=== PATIENT | male | born 1985 | race Caucasian/White ===

== ENCOUNTER 2019-02-04 09:35 | Emergency (ER) | payer OTHER ==
[2019-02-04 09:56] VITALS: BP 134/84; PULSE 90; TEMP 98.3; BMI 38.6
[2019-02-04] MEDS ORDERED: SODIUM PHOSPHATE/NA BIPHOS 133 ML ENEMA PR ONE (10:49)
--- NOTE | 2019-02-04 10:50 | PDOC ---
History of Present Illness - General Chief Complaint: Constipation Stated Complaint: Constipation Time Seen by Provider: 02/04/19 10:25 History Source: Patient Exam Limitations: No Limitations - History of Present Illness Initial Comments: 33 yo M PMH gout, fatty liver disease, p/w constipation. Says he was biking a ton the last two days with a hoodie on, trying to lose a bunch of weight. This morning, he attempted to go and was straining for about 40 minutes without success. Was concerned that he had "ripped myself all up inside". He had another unsuccessful attempt a few hours later, which prompted him to come in. Did not try anything at home. Normally takes colchicine at home but has not for past week because it was causing him diarrhea. Denies CP, SOB, FLYNN, dizziness, wheezing, N/V, abdominal pain, muscle pains. 02/04/19 10:49 Past History - Past Medical History Allergies/Adverse Reactions: Allergies Allergy/AdvReac Type Severity Reaction Status Date / Time clarithromycin [From Biaxin] Allergy Verified 02/04/19 11:27 Penicillins Allergy Verified 02/04/19 11:27 Home Medications: Ambulatory Orders [place]-3S/Dha/Epa/Fish Oil [Fish Oil [place]-3 Softgel] 1 each PO DAILY 02/04/19 COPD: No - Immunization History Immunization Up to Date: Yes - Suicide/Smoking/Psychosocial Hx Smoking History: Never smoked Have you smoked in the past 12 months: No Information on smoking cessation initiated: No Hx Alcohol Use: No Drug/Substance Use Hx: No Review of Systems - Review of Systems Constitutional: No: Chills, Fever HEENTM: No: Eye Pain, Double Vision, Hearing Loss, Throat Pain, Throat Swelling , Mouth Pain, Difficulty Swallowing Respiratory: No: Cough, Orthopnea, Shortness of Breath Cardiac (ROS): No: Chest Pain, Edema, Irregular Heart Rate ABD/GI: Yes: Abd. Pain w/ defecation, Constipated (for one day). No: Diarrhea, Difficulty Swallowing, Nausea, Vomiting : No: Burning, Dysuria, Discharge, Frequency Musculoskeletal: Yes: Gout. No: Back Pain Neurological: No: Headache, Numbness *Physical Exam - Vital Signs Last Vital Signs Temp Pulse Resp BP Pulse Ox 98.3 F 90 20 134/84 99 02/04/19 09:52 02/04/19 09:52 07/18/19 09:52 02/04/19 09:52 02/04/19 09:52 - Physical Exam General Appearance: Yes: Nourished, Appropriately Dressed, Mild Distress HEENT: positive: EOMI, CHANTEL, Normal ENT Inspection, Normal Voice, Symmetrical, Pharynx Normal, Hearing Grossly Normal Neck: positive: Trachea midline, Normal Thyroid, Supple. negative: Tender Respiratory/Chest: positive: Lungs Clear, Normal Breath Sounds. negative: Chest Tender, Respiratory Distress, Accessory Muscle Use Cardiovascular: positive: Regular Rhythm, Regular Rate Gastrointestinal/Abdominal: positive: Normal Bowel Sounds, Soft. negative: Tender Rectal Exam: positive: other (no apparent external fissures, no bleeding, tenderness in the anus, worse near the perineum) Musculoskeletal: positive: Normal Inspection. negative: CVA Tenderness Extremity: positive: Normal Capillary Refill, Normal Inspection, Normal Range of Motion Integumentary: positive: Normal Color, Dry, Warm Neurologic: positive: hot patcher II-XII NML intact, Fully Oriented, Alert, Normal Mood/ Affect, Normal Response, Motor Strength 5/5 Medical Decision Making - Medical Decision Making Will try Fleets enema to help patient defecate. 02/04/19 10:55 Patient able to defecate. Greenish fluid and liquid stool in the toilet bowl. Some blood on tissue paper. Patient states he is feeling some heartburn, will give some Protonix PO. 02/04/19 11:22 Encouraged patient to include more fiber in diet, go to pharmacy and get OTC stool softener, and stay hydrated. Patient feels ready to go. 02/04/19 12:38 *DC/Admit/Observation/Transfer Diagnosis at time of Disposition: Pain associated with defecation, Constipated - Discharge Dispostion Disposition: HOME Condition at time of disposition: Improved Decision to Admit order: No - Referrals Referrals: Gera Purcell MD [Primary Care Provider] - - Patient Instructions Printed Discharge Instructions: DI for Constipation Additional Instructions: Please go to the pharmacy and get over the counter stool softeners. Include more fiber in your diet. Stay hydrated. Return to the ED if you develop severe abdominal pain or have several days of constipation. - Post Discharge Activity
[2019-02-04] MEDS ORDERED: PANTOPRAZOLE 40 MG TABLET (FP) PO ONE (11:25)
[2019-02-04] MEDS ORDERED: PANTOPRAZOLE 40 MG TABLET (FP) ONE (11:28)
--- NOTE | 2019-02-04 12:03 | PDOC ---
Attending Attestation - Resident Resident Name: JocelynVinh - ED Attending Attestation I have performed the following: I have examined & evaluated the patient, The case was reviewed & discussed with the resident, I agree w/resident's findings & plan, Exceptions are as noted - HPI HPI: 02/04/19 11:07 Mr. Peters is a 33 yo M presenting with a complaint of rectal pain s/p straining to have a bowel movement today Pt is concerned because he typically has a bowel movement daily and he could not have one today No nausea or vomiting No abdominal pain - Physicial Exam PE: 02/04/19 12:03 GENERAL: The patient is in no acute distress. ENT: Ears normal, nares patent, oropharynx clear without exudates. Moist mucous membranes. NECK: Normal range of motion, supple LUNGS: Breath sounds equal, clear to auscultation bilaterally. No wheezes, and no crackles. HEART:Regular rate and rhythm, normal S1 and S2 without murmur, rub or gallop. ABDOMEN: Soft, nontender RECTAL: per Dr Krishnan, no visible anal tears, no thrombosed external hemorrhoids EXTREMITIES: Normal range of motion, no edema. NEUROLOGICAL: Cranial nerves II through XII grossly intact. Normal speech. No focal neurological deficits. SKIN: Warm, Dry, normal turgor, no rashes or lesions noted. - Medical Decision Making 02/04/19 12:14 Fleets enema given (+) pt had bowel movement Will discharge to home 02/04/19 12:46 Clinical impression: constipation, initial presentation
== END 2019-02-04 13:01 | disposition home or self-care (01) ==
LOC: JER 09:35
DX: K59.00 Constipation, unspecified (principal); M10.9 Gout, unspecified
CPT/HCPCS: 99282-25